=== PATIENT | male | born 1990 | race Caucasian/White ===

== ENCOUNTER 2017-03-14 16:53 | Emergency (ER) | payer BC ==
[2017-03-14 17:20] VITALS: BP 139/76
--- NOTE | 2017-03-14 18:01 | UC ---
Psychiatric Complaint HPI - HPI Summary HPI Summary: Patient moved here 2 months ago from [place]. he appears very anxious, has been crying. was seen by [facility] today for evaluation was told he will not be seeing a psychiatrist for another month and was advised to come here to be given mediation for his anxiety. consulted [facility]. was given valium 6 weeks ago, 3 days worth,. he is normally on xanax - History Of Current Complaint Chief Complaint: UCGeneralIllness Stated Complaint: ANXIETY Time Seen by Provider: 03/14/17 17:32 Hx Obtained From: Patient ?: No Onset/Duration: Sudden Onset, Worse Since - new move Timing: Constant Severity Initially: Mild Severity Currently: Moderate Aggravating Factor(s): Recent Stress Alleviating Factor(s): Medication Associated Signs And Symptoms: Social Isolation Related History: Positive For: Prior Psychiatric Issues - Risk Factor(s) Completed Suicide Risk Factors: Male - Allergies/Home Medications Allergies/Adverse Reactions: Allergies Allergy/AdvReac Type Severity Reaction Status Date / Time Penicillins Allergy Anaphylatic Verified 03/14/17 17:20 Shock Home Medications: Home Medications Gabapentin CAP(*) [Neurontin 400 mg CAP(*)] 800 mg PO TID 03/14/17 [History Confirmed 03/14/17] Venlafaxine EXT RELEASE CAP* [Effexor Xr CAP*] 300 mg PO DAILY 03/14/17 [ History Confirmed 03/14/17] PMH/Surg Hx/FS Hx/Imm Hx Previously Healthy: Yes - Surgical History Surgical History: Yes Surgery Procedure, Year, and Place: T&A - Family History Known Family History: Negative: Cardiac Disease, Hypertension - Social History Alcohol Use: Weekly Substance Use Type: None Smoking Status (MU): Never Smoked Tobacco Review of Systems Constitutional: Negative Skin: Negative Eyes: Negative ENT: Negative Respiratory: Negative Cardiovascular: Negative Gastrointestinal: Negative Genitourinary: Negative Motor: Negative Neurovascular: Negative Musculoskeletal: Negative Neurological: Negative Psychological: Anxious All Other Systems Reviewed And Are Negative: Yes Physical Exam Triage Information Reviewed: Yes Appearance: Well-Appearing, Well-Nourished, Pain Distress Vital Signs: Initial Vital Signs Pulse 74 03/14/17 17:14 Resp 18 03/14/17 17:14 BP 139/76 03/14/17 17:14 Pulse Ox 99 03/14/17 17:14 Vital Signs Reviewed: Yes Eye Exam: Normal ENT Exam: Normal Dental Exam: Normal Neck exam: Normal Respiratory Exam: Normal Cardiovascular Exam: Normal Abdominal Exam: Normal Bowel Sounds: Positive: Present Musculoskeletal Exam: Normal Neurological Exam: Normal Psychological: Positive: Other: - appears anxious, denies having been crying but eyes are red and puffy. denies any suicidal or homicidal ideation Skin Exam: Normal Psych Complaint Course/Dx - Course Course Of Treatment: hx obtained, exam performed ,meds reviewed, given a few days of xanax to get him to his dr appointment - Differential Dx/Diagnosis Differential Diagnosis/HQI/PQRI: Anxiety Provider Diagnoses: anxiety. medication refill Discharge - Discharge Plan Condition: Stable Disposition: HOME Prescriptions: ALPRAZolam TAB* [Xanax TAB*] 1 mg PO DAILY #10 tab MDD 1 tab Patient Education Materials: Generalized Anxiety Disorder (ED) Referrals: No Primary Care Phys,NOPCP [Primary Care Provider] - Additional Instructions: 1. i have given you 10 days of xanax to cover you till you see your doctor. 2. If you anxiety becomes uncontrollable please go to ER for evaluation.
== END 2017-03-14 18:00 | disposition home or self-care (01) ==
LOC: UCCORT 16:53
DX: F41.9 Anxiety disorder, unspecified (principal)
CPT/HCPCS: 99212; G0463

== ENCOUNTER 2017-03-24 19:09 | Emergency (ER) | payer BC ==
[2017-03-24 19:31] VITALS: BP 153/101
--- NOTE | 2017-03-24 19:50 | UC ---
Psychiatric Complaint HPI - HPI Summary HPI Summary: 27 yo male with anxiety /panic attacks out of his meds (early) recently moved from [place] has PMD awaiting a psych appt no homicidal or suicidal thoughts - History Of Current Complaint Chief Complaint: UCMedRefill Stated Complaint: ANXIETY/SCRIPT REFILL Time Seen by Provider: 03/24/17 19:46 Hx Obtained From: Patient Onset/Duration: Gradual Onset, Lasting Weeks Timing: Constant Severity Initially: Moderate Severity Currently: Moderate Character: Fearful, Anxious Aggravating Factor(s): Recent Stress Alleviating Factor(s): Medication, Counseling Related History: Positive For: Prior Psychiatric Issues - Allergies/Home Medications Allergies/Adverse Reactions: Allergies Allergy/AdvReac Type Severity Reaction Status Date / Time Penicillins Allergy Anaphylatic Verified 03/24/17 19:30 Shock Home Medications: Home Medications QUEtiapine TAB* [SEROquel TAB*] 25 mg PO BEDTIME 03/24/17 [History Confirmed 05/31] PMH/Surg Hx/FS Hx/Imm Hx Previously Healthy: Yes Psychological History: Anxiety, Depression Other History Of: Hepatitis C - Surgical History Surgical History: Yes Surgery Procedure, Year, and Place: T&A - Family History Known Family History: Negative: Cardiac Disease, Hypertension, Diabetes - Social History Alcohol Use: Weekly Substance Use Type: None Smoking Status (MU): Never Smoked Tobacco Review of Systems Constitutional: Negative Skin: Negative Eyes: Negative ENT: Negative Respiratory: Negative Cardiovascular: Negative Gastrointestinal: Negative Genitourinary: Negative Motor: Negative Neurovascular: Negative Musculoskeletal: Negative Neurological: Negative Psychological: Anxious All Other Systems Reviewed And Are Negative: Yes Physical Exam Triage Information Reviewed: Yes Appearance: Well-Appearing, No Pain Distress, Well-Nourished Vital Signs: Initial Vital Signs Temp 98.1 F 03/24/17 19:26 Pulse 101 03/24/17 19:26 Resp 18 03/24/17 19:26 BP 153/101 03/24/17 19:26 Pulse Ox 97 03/24/17 19:26 Vital Signs Reviewed: Yes Eyes: Positive: Conjunctiva Clear ENT: Positive: Hearing grossly normal. Negative: Nasal congestion, Nasal drainage, Trismus, Muffled/hoarse voice Neck: Positive: Supple, Nontender, No Lymphadenopathy, Other: - no thyoid masses Respiratory: Positive: Lungs clear, Normal breath sounds, No respiratory distress, No accessory muscle use Cardiovascular: Positive: RRR, No Murmur Musculoskeletal: Positive: ROM Intact, No Edema Neurological: Positive: Alert Psychological: Positive: Other: - appears anxious/no pyschotic features Skin Exam: Normal Psych Complaint Course/Dx - Differential Dx/Diagnosis Provider Diagnoses: anxiety. out of meds Discharge - Discharge Plan Condition: Stable Disposition: HOME Prescriptions: clonazePAM TAB(*) [KlonoPIN TAB(*)] 0.5 mg PO TID PRN #15 tab MDD 3 PRN Reason: Anxiety Patient Education Materials: Anxiety (ED) Forms: *Work Release Referrals: Brendan Jones MD [Primary Care Provider] - As Soon As Possible
== END 2017-03-24 20:12 | disposition home or self-care (01) ==
LOC: UCCORT 19:09
DX: F41.9 Anxiety disorder, unspecified (principal); Z76.0 Encounter for issue of repeat prescription; F32.9 Major depressive disorder, single episode, unspecified; Z88.0 Allergy status to penicillin
CPT/HCPCS: 99212; G0463

== ENCOUNTER 2018-07-14 13:49 | Emergency (ER) | payer BC, MEDICAID, OTHER ==
[2018-07-14 14:22] VITALS: BP 147/79
--- NOTE | 2018-07-14 14:36 | ED ---
Psychiatric Complaint - HPI Summary HPI Summary: 28 yr old male with the complaint of daily anxiety, panic attacks, and feeling down and depressed. He denies suicidal ideation or plan. Denies thought of harming others. He has been out of his psych meds for months. He is not sleeping or eating well. Complaint two: He stuck toilet paper in his left ear due to migraines. Feels it is still in his ear. Gabapentin, Wellbuterin and Seroquel were his prior psychiatric meds. He has not been on them for over four months. - History Of Current Complaint Chief Complaint: UCGeneralIllness Time Seen by Provider: 07/14/18 14:24 - Allergies/Home Medications Allergies/Adverse Reactions: Allergies Allergy/AdvReac Type Severity Reaction Status Date / Time Penicillins Allergy Anaphylatic Verified 07/14/18 14:14 Shock Home Medications: Home Medications Ibuprofen TAB* [Advil TAB*] 1,600 mg PO Q6H PRN 07/14/18 [History Confirmed ] PMH/Surg Hx/FS Hx/Imm Hx Psychiatric History: Reports: Hx Anxiety, Hx Depression, Hx Panic Disorder - Surgical History Surgery Procedure, Year, and Place: T&A Infectious Disease History: No Infectious Disease History: Denies: Traveled Outside the [place] in Last 30 Days - Family History Known Family History: Positive: Cardiac Disease Negative: Hypertension, Diabetes - Social History Alcohol Use: Rare Substance Use Type: Reports: None Smoking Status (MU): Light Every Day Tobacco Smoker Type: Cigarettes Amount Used/How Often: 1/2 PPD Have You Smoked in the Last Year: No Review of Systems Constitutional: Negative Positive: Anxious, Depressed All Other Systems Reviewed And Are Negative: Yes Physical Exam Triage Information Reviewed: Yes Vital Signs On Initial Exam: Initial Vitals Temp Pulse Resp BP Pulse Ox 99.2 F 80 15 147/79 100 07/14/18 14:15 07/14/18 14:15 07/14/18 14:15 07/14/18 14:15 07/14/18 14:15 Vital Signs Reviewed: Yes Appearance: Positive: Well-Appearing, No Pain Distress Skin: Positive: Warm, Skin Color Reflects Adequate Perfusion Head/Face: Positive: Normal Head/Face Inspection Eyes: Positive: EOMI ENT: Positive: Pharynx normal, Other - FB deep in left external canal, with wax as well. Neck: Positive: Nontender Respiratory/Lung Sounds: Positive: Clear to Auscultation, Breath Sounds Present Cardiovascular: Positive: RRR. Negative: Murmur Abdomen Description: Negative: Distended Musculoskeletal: Positive: Strength/ROM Intact Neurological: Positive: Sensory/Motor Intact, Alert, Oriented to Person Place, Time, CN Intact II-III, Normal Gait, Speech Normal Psychiatric: Positive: Anxious Diagnostics - Vital Signs Vital Signs Temp Pulse Resp BP Pulse Ox 07/14/18 14:15 99.2 F 80 15 147/79 100 - Laboratory Lab Statement: Any lab studies that have been ordered have been reviewed, and results considered in the medical decision making process. Course/Dx - Course Course Of Treatment: 28 yr old with Anxiety, depression, panic, and FB left external canal. He will go to the ER for further eval of his anxiety, panic, depression and removal of the FB in the left external canal. - Differential Dx/Clinical Impression Provider Diagnosis: Anxiety, Foreign body of ear, left Discharge - Sign-Out/Discharge Documenting (check all that apply): Patient Departure All imaging exams completed and their final reports reviewed: No Studies - Discharge Plan Condition: Good Disposition: HOME-RECOMMEND TO ED Patient Education Materials: Ear Foreign Body (ED), Mood Disorders (ED), Hypertension (ED), Anxiety (ED) Referrals: No Primary Care Phys,NOPCP [Primary Care Provider] - [facility] [place] [facility] [Outside] - 1 Day Additional Instructions: You should go to the ER now for removal of the ear Foreign body where they have proper tools and suction for the proceedure. Also, they can evaluate you for your anxiety, panic by doing screening work up and having psychiatry consultation, referral. Do not delay going. - Billing Disposition and Condition Condition: GOOD Disposition: Home-Recommend to ED
== END 2018-07-14 14:48 | disposition home health service (06) ==
LOC: UCCORT 13:49
DX: T16.2XXA Foreign body in left ear, initial encounter (principal); X83.8XXA Intentional self-harm by other specified means, initial encounter; Y92.9 Unspecified place or not applicable; F41.9 Anxiety disorder, unspecified; Z88.0 Allergy status to penicillin; F17.210 Nicotine dependence, cigarettes, uncomplicated
CPT/HCPCS: 99212; G0463